=== PATIENT | female | born 1945 | race Caucasian/White ===

== ENCOUNTER 2017-02-02 10:56 | Day surgery (SDC) | payer OTHER, MEDICAID ==
[~2017-02-02 10:56] MED LIST: TETRACAINE 0.5% OPHTH 1 DOSE AFFEYE ONE; VIGAMOX 0.5% OPHTH 1 DOSE AFFEYE ONE
[2017-02-02] MEDS ORDERED: PROLENSA OPHTH 1 DOSE AFFEYE ONE (10:57)
[2017-02-02] MEDS ORDERED: ALPHAGAN-P OPHTH 1 DOSE AFFEYE ONE (10:58)
[2017-02-02] MEDS ORDERED: AK-DILATE 2.5% OPHTH 1 DOSE OP ONE ×4 (10:59→11:02)
[2017-02-02] MEDS ORDERED: MYDRIACIL OPHTH 1 DOSE AFFEYE ONE ×4 (10:59→11:02)
[2017-02-02] MEDS ORDERED: CYCLOGYL 1% OPHTH 1 DOSE OP ONE ×4 (10:59→11:02)
[2017-02-02] MEDS ORDERED: NS 500 ML IV 500 ML IV ONE (11:02)
[2017-02-02] MEDS ORDERED: TETRACAINE 0.5% OPHTH 1 DOSE AFFEYE ONE (13:48)
[2017-02-02] MEDS ORDERED: BETADINE OPHTH SOLN 5% EACHEYE ONE (13:48)
[2017-02-02] MEDS ORDERED: VIGAMOX 0.5% OPHTH 1 DOSE AFFEYE ONE ×2 (14:05→14:22)
[2017-02-02] MEDS ORDERED: ADRENALINE CHL INJ IJ ONE (14:12)
[2017-02-02] MEDS ORDERED: XYLOCAINE-MPF 1% IJ ONE (14:12)
[2017-02-02] MEDS ORDERED: BSS OPHTH (PLAIN) 500 ML with VANCOMYCIN HCL 500 MG VIAL 25 MG, ADRENALINE CHL INJ 1 MG IR ONE ×3 (14:12)
[2017-02-02] MEDS ORDERED: DUOVISC IO ONE (14:12)
[2017-02-02 16:57] VITALS: BP 155/80
== END 2017-02-02 14:45 | disposition home or self-care (01) ==
LOC: SURG1 10:56
PROVIDERS: ATTEND Ophthalmology
PROC: 08DK3ZZ Extraction of Left Lens, Percutaneous Approach (ICD-10-PCS; principal; 2017-02-02 21:30)
PROC: 08RK3JZ Replacement of Left Lens with Synthetic Substitute, Percutaneous Approach (ICD-10-PCS; principal; 2017-02-02 21:30)
DX: H25.12 Age-related nuclear cataract, left eye (principal); H25.012 Cortical age-related cataract, left eye
CPT/HCPCS: A4217; J0170; J3370

== ENCOUNTER 2017-02-16 07:35 | Day surgery (SDC) | payer OTHER, MEDICAID ==
[2017-02-16] MEDS ORDERED: NS 500 ML IV 500 ML IV ONE (08:40)
[2017-02-16] MEDS ORDERED: TETRACAINE 0.5% OPHTH 1 DOSE AFFEYE ONE ×2 (08:45→10:57)
[2017-02-16] MEDS ORDERED: VIGAMOX 0.5% OPHTH 1 DOSE AFFEYE ONE ×5 (08:50→11:31)
[2017-02-16] MEDS ORDERED: PROLENSA OPHTH 1 DOSE AFFEYE ONE (09:03)
[2017-02-16] MEDS ORDERED: ALPHAGAN-P OPHTH 1 DOSE AFFEYE ONE (09:05)
[2017-02-16] MEDS ORDERED: CYCLOGYL 1% OPHTH 1 DOSE OP ONE ×6 (09:06→09:22)
[2017-02-16] MEDS ORDERED: AK-DILATE 2.5% OPHTH 1 DOSE OP ONE ×6 (09:08→09:23)
[2017-02-16] MEDS ORDERED: MYDRIACIL OPHTH 1 DOSE AFFEYE ONE ×6 (09:09→09:24)
[2017-02-16] MEDS ORDERED: DIPRIVAN VIAL ONE (10:34)
[2017-02-16] MEDS ORDERED: BETADINE OPHTH SOLN 5% EACHEYE ONE (10:57)
[2017-02-16] MEDS ORDERED: BSS OPHTH (PLAIN) 500 ML with VANCOMYCIN HCL 500 MG VIAL 25 MG, ADRENALINE CHL INJ 1 MG IR ONE ×3 (11:16)
[2017-02-16] MEDS ORDERED: ADRENALINE CHL INJ IJ ONE (11:16)
[2017-02-16] MEDS ORDERED: DUOVISC IO ONE (11:16)
[2017-02-16] MEDS ORDERED: XYLOCAINE-MPF 1% IJ ONE (11:16)
[2017-02-16 12:20] VITALS: BP 164/83
== END 2017-02-16 11:57 | disposition home or self-care (01) ==
LOC: SURG1 07:35
PROVIDERS: ATTEND Ophthalmology
PROC: 08DJ3ZZ Extraction of Right Lens, Percutaneous Approach (ICD-10-PCS; principal; 2017-02-16 12:45)
PROC: 08RJ3JZ Replacement of Right Lens with Synthetic Substitute, Percutaneous Approach (ICD-10-PCS; principal; 2017-02-16 12:45)
DX: H25.11 Age-related nuclear cataract, right eye (principal)
CPT/HCPCS: A4217; J0170; J3370; J3490